=== PATIENT | male | born 1990 | race Caucasian/White ===

== ENCOUNTER 2025-01-07 05:14 | Emergency (ER) | payer BC, SELFPAY ==
[2025-01-07 05:25] VITALS: BP 146/80
[2025-01-07 05:40] VITALS: BMI 23.8
[2025-01-07 05:42] LABS: Hematocrit 42.0 % (39.0-52.0); Hemoglobin 15.4 g/dL (13.0-18.0); Mean Corp Hgb Conc. 36.7 g/dL (33.0-37.0); Mean Corpuscular Volume 84.7 fL (80.0-94.0); Nucleated Red Blood Cells % 0 % (-); Platelet Count 232 10^3/uL (130-400); Red Cell Dist. Width 12.0 % (11.5-14.5)
--- NOTE | 2025-01-07 05:49 | EDRN ---
Discussed + suicide screening [facility] Gale. Provider deemed it unnecessary for patient to be on a 1:1 at this time. Patient says he does not have any plan. Patient was recently laid off from his job and has been feeling depressed from that.
[2025-01-07 06:00] VITALS: BP 126/78
[2025-01-07 06:09] LABS: ALT (SGPT) 40 U/L (0-50); AST (SGOT) 36 U/L (17-59); Albumin 4.4 g/dl (3.5-5.0); Alkaline Phosphatase 80 U/L (38-126); Blood Urea Nitrogen 17 mg/dl (9-20); Calcium 9.2 mg/dl (8.4-10.2); Carbon Dioxide 19 mmol/L (22-30); Chloride 105 mmol/L (98-107); Estimated Creatinine Clearance > 125 ml/min; Glucose 191 mg/dl (70-99); Potassium 3.9 mmol/L (3.5-5.1); Sodium 135 mmol/L (135-145); Total Protein 7.5 g/dl (6.3-8.2); eGFR > 60.00
[2025-01-07] MEDS: NSS 1000 IV (06:48)
[2025-01-07] MEDS: ZOFRAN 4 MG IV (06:49)
[2025-01-07] MEDS: TORADOL 15 MG IV (06:49)
--- NOTE | 2025-01-07 06:56 | ED.GENMED ---
History of Present Illness
General
Chief Complaint: Abdominal Symptoms
Time Seen by Provider: 01/07/25 06:13
History of Present Illness
History of Present Illness:
34-year-old male without significant past medical history presenting to the emergency department for nausea, vomiting, diarrhea. Patient reports symptoms for the past 24 hours. Since about midnight, has not been able to tolerate anything oral with
persistent nausea and vomiting. Upper abdominal discomfort. Reports that his 2 younger sons at home have similar symptoms, however their symptoms improved. Denies any abnormal foods. Denies any history of abdominal surgeries. Denies fever,
chest pain, difficulty breathing. Denies additional acute medical complaints
Past History
Past History
ED Past Medical History: Other (History of testicular varices )
ED Past Surgical History: Other
Social History
Drug: None
Personal: Single
Living: with family
Employment: Other (The patient is also a student. )
Phy Exam
Physical Exam
Physical Exam:
General: Well-appearing, no clinical signs of dehydration, nontoxic and in no acute distress
HEENT: protecting airway
Neck: appears supple
CV: Normal heart rate, regular rhythm
Resp: No accessory muscle use, no increased work of breathing, lungs clear to auscultation bilaterally
Abd: Mild epigastric discomfort, no rebound or guarding
Extremities: No deformities, no swelling
Neuro: alert, no focal neurologic deficit
: deferred
Rectal: deferred
Psych: Normal affect
Skin: Intact
Course
Orders/Labs/Results
Orders:
Orders
01/07/25 05:30
Crisis Consult Urgent
Reason for Consult: thoughts of wanting to kill self- no plan
01/07/25 05:33
Complete Blood Count/With Diff Urgent
Comprehensive Metabolic Panel Urgent
Lipase Urgent
Comment: ADD ON
01/07/25 06:37
Add On- LAB Urgent
Tests Added?: lipase
01/07/25 06:39
0.9% Sodium Chloride 1000 ml [Nss] 1,000 ml IV BOLUS
Ketorolac [Toradol] 15 mg IV NOW STA
Ondansetron Injectable [Zofran] 4 mg IV NOW STA
01/07/25 06:56
US Abdomen Complete/Upper Urgent
Comment:
Reason For Exam: upper abd pain, N/V
Abnormal Lab Results
01/07/25
05:33
WBC 11.9 H 10^3/uL
(4.8-10.8)
Abs Immat Gran (auto) 0.1 H 10^3/uL
(0-0.05)
Absolute Neuts (auto) 10.5 H 10^3/uL
(1.4-6.5)
Absolute Lymphs (auto) 0.7 L 10^3/uL
(1.2-3.4)
Neutrophils % 88.2 H %
(42.2-75.2)
Lymphocytes % 6.2 L %
(20.5-51.1)
Carbon Dioxide 19 L mmol/L
(22-30)
Glucose 191 H mg/dl
(70-99)
Total Bilirubin 1.5 H mg/dl
(0.2-1.3)
01/07/25 05:33
01/07/25 05:33
Vital Signs
Initial and Last Documented VS:
Initial Vital Signs
Temp Pulse Resp
98.2 F 61 22
01/07/25 05:16 01/07/25 05:16 01/07/25 05:16
Last Documented Vital Signs
Temp Pulse Resp BP Pulse Ox
98.2 F 90 26 114/86 100
01/07/25 05:16 01/07/25 07:00 01/07/25 07:00 01/07/25 07:00 01/07/25 06:59
MDM/Problems Addressed
MDM/Problems Addressed:
34-year-old male presenting for nausea, vomiting, diarrhea for 1 day. Vital signs on arrival are normal.
On exam patient is in no acute distress. Overall benign cardiac, pulmonary, abdominal exam. Minimal tenderness to the upper abdomen. No localized tenderness to the right upper quadrant. Lower suspicion for acute cholecystitis. Symptoms appear
most consistent with viral gastroenteritis, known sick contacts with both vomiting and diarrhea. Will screen patient with laboratory analysis including lipase. Will also obtain right upper quadrant ultrasound imaging. Will treat patient with IV
fluids and Zofran. Toradol administered for pain.
08:00-on reassessment, patient tolerating p.o. He reports that he is feeling better. Patient did note some suicidal thoughts at times. Admits to stress at home, recently lost his job. Patient seen by crisis. No indication for inpatient therapy.
Patient provided outpatient resources. At this time feel that he is stable for discharge with normal laboratory analysis, normal right upper quadrant ultrasound imaging. Continue to suspect viral gastroenteritis. Will prescribe Zofran. Return
precautions discussed and patient verbalized understanding
*Pulse Oximetry
SaO2: 100
Oxygen Mode of Delivery: Room air
Patient hypoxic: no
*Critical Care Note
Total Time (30-74mins, 75-104mins- exclusive of procedures): Not Applicable
ED Attending Note
-
Portions of this chart may have been created with voice recognition software.� Occasional wrong word or��sound alike� substitutions may have occurred due to the inherent limitations of voice recognition software.
Discharge Plan
Departure
Prescriptions:
No Action
omega-3 fatty acids-fish oil [Fish Oil] 1,000 MG capsule
1 cap PO DAILY
multivitamin with folic acid [Tab-A-Jazmine] 1 TABLET tablet
1 tab PO DAILY
Vp2
PO DAILY
Patient Comments:
PROTEIN SHAKE, TAKES ALMOST EVERY DAY
Referrals:
UNKNOWN - PT DOES,NOT KNOW [Family Provider]
Interventions
Interventions:
*Risk Screen - Suicide Last Done: 01/07/25 05:22
*General Assessment Last Done: 01/07/25 05:22
*Neglect/Abuse Screening Last Done: 01/07/25 05:22
*ED- Fall Risk Assessment Last Done: 01/07/25 05:22
*ED COVID-19 Vaccine History Last Done: 01/07/25 05:22
*ED Influenza Vaccine History Last Done: 01/07/25 05:22
YC-Ihqwks-Fpqgoetllv Assessment Last Done: 01/07/25 07:20
Discharge Date and Time
Print Language: BELARUSIAN
[2025-01-07 07:00] VITALS: BP 114/86
[2025-01-07 07:28] VITALS: BP 128/82
[2025-01-07 07:28] LABS: Lipase 29 U/L (23-300)
== END 2025-01-07 08:40 | disposition home or self-care (01) ==
LOC: EMR 05:14
PROVIDERS: Emergency Medicine; EMERGENCY PHYSICIAN Student in an Organized Health Care Education/Training Program
DX: A08.4 Viral intestinal infection, unspecified (principal); R45.851 Suicidal ideations; Z56.0 Unemployment, unspecified
CPT/HCPCS: 96374; 96375; 96361; 99284; 76700; 80053; 83690; 85025